=== PATIENT | male | born 1995 | race Caucasian/White ===

== ENCOUNTER 2019-05-22 12:43 | Emergency (ER) | payer SELFPAY ==
[2019-05-22 12:53] VITALS: BP 140/83
--- NOTE | 2019-05-22 13:25 | ER Document Report ---
ED Medical Screen (RME) - General Chief Complaint: Suicidal Ideation Stated Complaint: PSYCH ISSUES Time Seen by Provider: 05/22/19 13:20 Notes: Patient is a 23-year-old male with history of bipolar and ADHD who presents to the emergency department with a chief complaint of suicidal thoughts. Patient states he does constantly have suicidal thoughts but over the past 2 days since losing his full-time job they have gotten worse. Patient reports having dark thoughts. Patient states he does not have a specific plan to hurt himself but will have thoughts of "hoping he would just get hit by a car." Patient states he has never been hospitalized for this before. Patient does take Lamictal, Adderall XR and IR and Abilify as prescribed. TRAVEL OUTSIDE OF THE [place] IN LAST 30 DAYS: No - Related Data Allergies/Adverse Reactions: No Known Allergies Allergy (Verified 05/22/19 12:44) Physical Exam - Vital signs Vitals: Temp Pulse Resp BP Pulse Ox 98.2 F 82 17 140/83 H 100 05/22/19 12:52 05/22/19 12:52 05/22/19 12:52 05/22/19 12:52 05/22/19 12:52 - Cardiovascular Rhythm: Regular Heart sounds: Normal auscultation, S1 appreciated, S2 appreciated Course - Re-evaluation Re-evalutation: 05/22/19 13:29 I have greeted and performed a rapid initial assessment of this patient. A comprehensive ED assessment and evaluation of the patient, analysis of test results and completion of the medical decision making process will be conducted by additional ED providers. - Vital Signs Vital signs: Temp Pulse Resp BP Pulse Ox 98.2 F 82 17 140/83 H 100 05/22/19 12:52 05/22/19 12:52 05/22/19 12:52 05/22/19 12:52 05/22/19 12:52
[2019-05-22 14:01] LABS: ABSOLUTE LYMPHOCYTES (AUTO) 1.7 10^3/uL (0.5-4.7); ABSOLUTE MONOCYTES (AUTO) 0.6 10^3/uL (0.1-1.4); ABSOLUTE NEUT (AUTO) 5.1 10^3/uL (1.7-8.2); BASOPHILS % (AUTO) 0.3 % (0-2); EOSINOPHILS % (AUTO) 0.6 % (0-6); HEMATOCRIT 43.7 % (37.9-51.0); HEMOGLOBIN 15.2 g/dL (13.5-17.0); LYMPHOCYTES % (AUTO) 22.7 % (13-45); MEAN CORPUSCULAR HEMOGLOBIN 30.2 pg (27.0-33.4); MEAN CORPUSCULAR HGB CONC 34.8 g/dL (32.0-36.0); MEAN CORPUSCULAR VOLUME 87 fl (80-97); MONOCYTES % (AUTO) 7.7 % (3-13); PLATELET COUNT 290 10^3/uL (150-450); RED BLOOD COUNT 5.04 10^6/uL (4.35-5.55); RED CELL DISTRIBUTION WIDTH 12.8 % (11.5-14.0); SEGMENTED NEUTROPHILS % (AUTO) 68.7 % (42-78); TOTAL CELLS COUNTED % (AUTO) 100 %; WHITE BLOOD COUNT 7.5 10^3/uL (4.0-10.5)
[2019-05-22 14:02] LABS: APPEARANCE,URINE CLEAR; BILIRUBIN,URINE NEGATIVE (NEGATIVE); COLOR,URINE STRAW; GLUCOSE, URINE NEGATIVE (NEGATIVE); KETONES,URINE NEGATIVE (NEGATIVE); LEUKOCYTE ESTERASE,URINE NEGATIVE (NEGATIVE); NITRITE,URINE NEGATIVE (NEGATIVE); PROTEIN,URINE NEGATIVE (NEGATIVE); URINE SPECIFIC GRAVITY 1.003; UROBILINOGEN,URINE NEGATIVE mg/dL (<2.0)
[2019-05-22 14:16] LABS: ACETAMINOPHEN < 10 ug/mL (10-30); ALCOHOL < 10 mg/dL (NONE DETECTED); ALKALINE PHOSPHATASE 104 U/L (38-126); ANION GAP 8 (5-19); ASPARTATE AMINO TRANSFERASE 39 U/L (17-59); BILIRUBIN,DIRECT 0.2 mg/dL (0.0-0.4); BILIRUBIN,TOTAL 0.6 mg/dL (0.2-1.3); BLOOD UREA NITROGEN 8 mg/dL (7-20); CARBON DIOXIDE 33 mmol/L (22-30); CHLORIDE 100 mmol/L (98-107); GLUCOSE 93 mg/dL (75-110); POTASSIUM 4.6 mmol/L (3.6-5.0); SALICYLATE < 1.0 mg/dL (2.0-20.0); TOTAL PROTEIN 7.8 g/dL (6.3-8.2)
[2019-05-22 14:26] LABS: URINE AMPHETAMINES SCREEN NEGATIVE; URINE BARBITURATES SCREEN NEGATIVE; URINE BENZODIAZEPINES SCREEN NEGATIVE; URINE COCAINE SCREEN NEGATIVE; URINE MARIJUANA (THC) SCREEN NEGATIVE; URINE METHADONE SCREEN NEGATIVE; URINE PHENCYCLIDINE SCREEN NEGATIVE
--- NOTE | 2019-05-22 14:44 | ER Document Report ---
ED General <THOMPSON BERNSTEIN - Last Filed: 05/22/19 16:02> - General TRAVEL OUTSIDE OF THE [place] IN LAST 30 DAYS: No <KEENA CORTES - Last Filed: 05/22/19 16:17> - General Chief Complaint: Suicidal Ideation Stated Complaint: PSYCH ISSUES Time Seen by Provider: 05/22/19 13:20 Primary Care Provider: [facility] [Provider Group] - Follow up as needed [facility] [Outside] - 05/23/19 8:00 am [facility] [Outside] - Follow up as needed Notes: Patient is a 23-year-old male with ADHD and bipolar disorder that presents to the emergency department for chief complaint of suicidal ideation. Patient states that over the past month, he has been feeling more depressed, and most recently he started a new job, that he needs for money, he states his been very tight with money and currently living with his girlfriend, then his truck broke down, and was not able to get to his job, that he took his mother's car and then also had issues so he missed another day of work and thinks he may be fired. As a result he is been feeling more suicidal, although he does not have a specific plan at this time. He states that he just hope that a car would hit him. He has never thought about a plan in the past. Denies prior hospitalizations for mental health. He is currently on Lamictal and Abilify as well as Adderall, but he does not know his dosing. He last saw a mental health provider about 2 months ago. Past Medical History: ADHD, bipolar disorder Past Surgical History: Denies surgical history Social History: Rare alcohol use, denies tobacco or illicit drug use. Family History: Reviewed and noncontributory for presenting illness Allergies: Reviewed, see documented allergy list. REVIEW OF SYSTEMS: Other than noted above, the 12 point review of systems was reviewed with the patient and were negative, all pertinent findings are included in the HPI. PHYSICAL EXAMINATION: Vital signs reviewed, nursing noted reviewed. GENERAL: Well-appearing, well-nourished and in no acute distress. HEAD: Atraumatic, normocephalic. EYES: Eyes appear normal, extraocular movements intact, sclera anicteric, conj unctiva are normal. ENT: nares patent, oropharynx clear without exudates. Moist mucous membranes. NECK: Normal range of motion, supple without lymphadenopathy LUNGS: Breath sounds clear to auscultation bilaterally and equal. No wheezes rales or rhonchi. HEART: Regular rate and rhythm without murmurs ABDOMEN: Soft, nontender, normoactive bowel sounds. No rebound, guarding, or rigidity. No masses appreciated. EXTREMITIES: Nontender, good range of motion, no pitting or edema. NEUROLOGICAL: No focal neurological deficits. Moves all extremities spontaneously Motor and sensory grossly intact on exam. PSYCH: Dysphoric mood, poor eye contact, answers questions appropriately, no active hallucinations. SKIN: Warm, Dry, normal turgor, no rashes or lesions noted on exposed skin (KEENA CORTES) - Related Data Allergies/Adverse Reactions: No Known Allergies Allergy (Verified 05/22/19 12:44) Past Medical History - Social History Smoking Status: Never Smoker Frequency of alcohol use: Occasional Drug Abuse: None Family History: Reviewed & Not Pertinent Patient has suicidal ideation: Yes Patient has homicidal ideation: No Renal/ Medical History: Denies: Hx Peritoneal Dialysis Psychiatric Medical History: Reports: Hx Attention Deficit Hyperactivity Disorder, Hx Bipolar Disorder, Hx Depression <KEENA CORTES - Last Filed: 05/22/19 16:17> - Vital signs Vitals: Temp Pulse Resp BP Pulse Ox 98.2 F 82 17 140/83 H 100 05/22/19 12:52 05/22/19 12:52 05/22/19 12:52 05/22/19 12:52 05/22/19 12:52 Course - Laboratory Result Diagrams: 05/22/19 13:36 05/22/19 13:36 <THOMPSON BERNSTEIN - Last Filed: 05/22/19 16:02> - Laboratory Result Diagrams: 05/22/19 13:36 05/22/19 13:36 <KEENA CORTES - Last Filed: 05/22/19 16:17> - Re-evaluation Re-evalutation: Patient seen and examined, vital signs reviewed. Medical screening testing was ordered including bloodwork, EKG, and toxicology. Results of testing were reviewed. Testing demonstrated unremarkable blood work, negative tox screen, and urinalysis. Patient has been stable from a hemodynamic standpoint. At this point I feel that the patient is medically cleared and can be further evaluated from a psychiatric standpoint for final disposition from the emergency department. Patient updated on plan of care. 05/22/19 16:16 After discussion with the behavioral health team, we will discharge the patient home, with a safety plan, is given resources, advised walk-in with his psychiatrist office tomorrow, patient agreeable to this plan of care. Laboratory 05/22/19 05/22/19 05/22/19 13:36 13:36 13:36 WBC 7.5 RBC 5.04 Hgb 15.2 Hct 43.7 MCV 87 MCH 30.2 MCHC 34.8 RDW 12.8 Plt Count 290 Seg Neutrophils % 68.7 Lymphocytes % 22.7 Monocytes % 7.7 Eosinophils % 0.6 Basophils % 0.3 Absolute Neutrophils 5.1 Absolute Lymphocytes 1.7 Absolute Monocytes 0.6 Absolute Eosinophils 0.0 Absolute Basophils 0.0 Sodium 141.0 Potassium 4.6 Chloride 100 Carbon Dioxide 33 H Anion Gap 8 BUN 8 Creatinine 0.84 Est GFR ( Amer) > 60 Est GFR (Non-Af Amer) > 60 Glucose 93 Calcium 10.0 Total Bilirubin 0.6 Direct Bilirubin 0.2 Neonat Total Bilirubin Not Reportable Neonat Direct Bilirubin Not Reportable Neonat Indirect Bili Not Reportable AST 39 ALT 62 Alkaline Phosphatase 104 Total Protein 7.8 Albumin 5.0 Urine Color STRAW Urine Appearance CLEAR Urine pH 8.0 Ur Specific Proctor 1.003 Urine Protein NEGATIVE Urine Glucose (UA) NEGATIVE Urine Ketones NEGATIVE Urine Blood NEGATIVE Urine Nitrite NEGATIVE Urine Bilirubin NEGATIVE Urine Urobilinogen NEGATIVE Ur Leukocyte Esterase NEGATIVE Urine RBC (Auto) 4 Urine Mucus (Auto) RARE Urine Ascorbic Acid NEGATIVE Salicylates < 1.0 L Urine Opiates Screen Urine Methadone Screen Acetaminophen < 10 L Ur Barbiturates Screen Ur Phencyclidine Scrn Ur Amphetamines Screen U Benzodiazepines Scrn Urine Cocaine Screen U Marijuana (THC) Screen Serum Alcohol < 10 05/22/19 13:36 WBC RBC Hgb Hct MCV MCH MCHC RDW Plt Count Seg Neutrophils % Lymphocytes % Monocytes % Eosinophils % Basophils % Absolute Neutrophils Absolute Lymphocytes Absolute Monocytes Absolute Eosinophils Absolute Basophils Sodium Potassium Chloride Carbon Dioxide Anion Gap BUN Creatinine Est GFR ( Amer) Est GFR (Non-Af Amer) Glucose Calcium Total Bilirubin Direct Bilirubin Neonat Total Bilirubin Neonat Direct Bilirubin Neonat Indirect Bili AST ALT Alkaline Phosphatase Total Protein Albumin Urine Color Urine Appearance Urine pH Ur Specific Proctor Urine Protein Urine Glucose (UA) Urine Ketones Urine Blood Urine Nitrite Urine Bilirubin Urine Urobilinogen Ur Leukocyte Esterase Urine RBC (Auto) Urine Mucus (Auto) Urine Ascorbic Acid Salicylates Urine Opiates Screen NEGATIVE Urine Methadone Screen NEGATIVE Acetaminophen Ur Barbiturates Screen NEGATIVE Ur Phencyclidine Scrn NEGATIVE Ur Amphetamines Screen NEGATIVE U Benzodiazepines Scrn NEGATIVE Urine Cocaine Screen NEGATIVE U Marijuana (THC) Screen NEGATIVE Serum Alcohol (KEENA CORTES) - Vital Signs Vital signs: Temp Pulse Resp BP Pulse Ox 98.2 F 82 17 140/83 H 100 05/22/19 12:52 05/22/19 12:52 05/22/19 12:52 05/22/19 12:52 05/22/19 12:52 - Laboratory Laboratory results interpreted by me: 05/22/19 13:36 Carbon Dioxide 33 H Salicylates < 1.0 L Acetaminophen < 10 L Discharge <THOMPSON BERNSTEIN - Last Filed: 05/22/19 16:02> <KEENA CORTES - Last Filed: 05/22/19 16:17> - Discharge Clinical Impression: History of bipolar disorder, Passive suicidal ideations Condition: Stable Disposition: HOME, SELF-CARE Additional Instructions: You have been evaluated by both medical and behavioral health providers while in the emergency department. You have been cleared from both acute medical and psychiatric services. You identified stressors related to job, finances and transportation. You endorsed previous passive suicidal ideation without plan or intent and denied current thoughts. Your girlfriend has agreed to be part of safety planning and you agreed to do a walk in tomorrow (05/23/19) with your provider. Bipolar Disorder Bipolar disorder is also called manic-depressive disorder. Depression alternates with brain hyperactivity called terence. Each phase lasts from several days to a few weeks. We don't know exactly what causes bipolar disorder, but it's treatable. During the "manic phase," you may feel elated and energetic. You may have racing thoughts, rapid speech, increased activity, and grandiose ideas. During this time, you may not realize how poor your judgement is. Inappropriate spending, drug abuse, excessive alcohol use, marriage problems, and irres ponsible sexual behavior are common during the manic phase. During the "depressive phase," you might feel depressed, guilty, worthless, fatigued, and unable to concentrate. You might have thoughts of suicide. Good treatments are available for bipolar disorder. Gilroy is a classic drug for bipolar disorder, and is still often useful. If the manic phase is very mild, an antidepressant alone can be prescribed. If the manic phase is very severe, an antipsychotic medicine (such as Haldol) may be needed. The treatment must be matched to your symptoms, so it's important to work closely with your psychiatric care provider. Contact your physician, the hospital emergency center, crisis line, or your counsellor if you are losing control or having self-destructive thoughts. DEPRESSION: Your evaluation reveals that you have mental depression. While symptoms may be vague, they often include disturbance of sleep, fatigue, loss of appetite, and general loss of interest in life. While depression may be a side effect of drugs, or a reaction to a major change in your life, many cases have no known cause. If depression is acute, and related to a major loss in your life, you can expect it to clear completely with time. If you have been depressed a long time, are prone to repeated bouts of depression or low mood, or have been thinking of suicide, get help. Depression can be treated with anti-depressant medication and counselling. Long-term depression will often take a few weeks to clear, even with appropriate medication. Follow-up care is important. SUICIDAL IDEATION: Suicidal ideation is a common medical term for thoughts about suicide, w hich may be as detailed as a formulated plan, without the suicidal act itself. Although most people who undergo suicidal ideation do not commit suicide, some go on to make suicide attempts. The range of suicidal ideation varies greatly from fleeting to detailed planning, role playing, and unsuccessful attempts. While thoughts about suicide are common, most people do not carry out serious actions to commit suicide. Based upon your evaluation and discussion with you, we do not believe you are currently at risk to act upon your thoughts of suicide. You have agreed to return to the Emergency Department, at any time, if you feel inclined to act upon your suicidal thoughts. FOLLOW-UP CARE: You are recommended to follow up with your outpatient provider at [facility] tomorrow (05/23/19) as a walk in for medication management follow up and request therapy. If they will not see you for therapy given previous attempts and no follow through you have been provided other local resources such as [facility]. Yo have also been provided the [facility] Mobile Crisis number for crisis, talk therapy and linkage to other services/supports. Your girlfriend has agreed to have control over medications and administration. If you experience worsening or a significant change in your symptoms, notify the physician immediately, utilize mobile crisis or return to the Emergency Department at any time for re- evaluation. Referrals: [facility] Crisis [facility] [Outside] - Follow up as needed [facility] [Outside] - 05/23/19 8:00 am [facility] [Provider Group] - Follow up as needed
--- NOTE | 2019-05-22 16:02 | PSYCHOLOGICAL NOTE ---
Psych Note - Psych Note Date seen by psych provider: 05/22/19 Time seen by psych provider: 14:40 - Chart review at 1440. Evaluation with patient and girlfriend from [id number]. Psych Note: Presenting Problem: passive SI, Hx Bipolar/MDD/ADHD, financial stress, recently got a job that he lost, transportation/vehicle issues since Thursday, outpatient provider [facility] medication are Lamictal, Adderall and Abilify, no recent changes/Abilify the newest/last saw provider a month ago. No current SI, never had a plan or intent. GF at bedside said they had been texting the entire time but she was at work. She denied concern for patient. Patient was alert and orientefd x5. Thought processes were linear and organized. Conversational speech was within normal limits for rate, tone and prosody. Insight, judgment and impulse control fair as evidenced by him seeking help when overwhelmed. Diagnosis: Bipolar by Hx per patient ADHD by Hx per patient Impression/Plan: Patient is cleared from acute psychiatric services.
--- NOTE | 2019-05-23 00:32 | EKG REPORT ---
SEVERITY:- NORMAL ECG - SINUS RHYTHM : Confirmed by: Kirk Rodriguez 23-May-2019 00:32:29
== END 2019-05-22 16:30 | disposition home or self-care (01) ==
LOC: ER 12:43
DX: R45.851 Suicidal ideations (principal); F90.9 Attention-deficit hyperactivity disorder, unspecified type; Z79.899 Other long term (current) drug therapy
CPT/HCPCS: 36415; 80053; 80307; 81001; 85025; 93005; 93010; 99285